=== PATIENT | male | born 1965 | race Caucasian/White ===

== ENCOUNTER 2017-06-17 17:51 | Emergency (ER) | payer OTHER, MEDICARE, MEDICAID ==
[2017-06-17] MEDS ORDERED: IBUPROFEN 800 MG TABLET PO ONE (19:13)
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
[2017-06-17] MEDS ORDERED: HYDROCODONE/ACETAMINOPHEN 5-325 MG 6 TAB/DSPK PO PRN (19:54)
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
[2017-06-17 20:17] VITALS: BP 150/87
== END 2017-06-17 20:17 | disposition home or self-care (01) ==
LOC: ER 17:51
DX: T14.8 Other injury of unspecified body region (principal); S60.221A Contusion of right hand, initial encounter; V43.52XA Car driver injured in collision with other type car in traffic accident, initial encounter; M25.511 Pain in right shoulder; M25.512 Pain in left shoulder; M79.1 Myalgia; R07.89 Other chest pain; M79.641 Pain in right hand; E11.9 Type 2 diabetes mellitus without complications; Z87.891 Personal history of nicotine dependence
CPT/HCPCS: 71020; 99284

== ENCOUNTER 2017-10-06 18:24 | Emergency (ER) | payer MEDICARE, MEDICAID ==
--- NOTE | 2017-10-06 19:25 | ER Document Report ---
ED Medical Screen (RME) - General Chief Complaint: Abdominal Pain Stated Complaint: LEFT SIDE PAIN Time Seen by Provider: 10/06/17 19:21 Notes: Patient has left-sided upper abdominal pain. He also has a cough and left lower chest pain. He states his urine has been very dark lately. TRAVEL OUTSIDE OF THE [place] IN LAST 30 DAYS: No - Related Data Allergies/Adverse Reactions: No Known Allergies Allergy (Verified 10/06/17 18:28) Home Medications: Current Home Medications Cyclobenzaprine HCl [Flexeril 10 mg Tablet] 10 mg PO Q6HP PRN 10/06/17 [History] Ibuprofen 800 mg PO Q6HP PRN 10/06/17 [History] Lisinopril [Prinivil 5 mg Tablet] 5 mg PO DAILY 10/06/17 [History] Metformin HCl 1,000 mg PO BID 10/06/17 [History] Past Medical History - Social History Frequency of alcohol use: None Drug Abuse: None Endocrine Medical History: Reports: Hx Diabetes Mellitus Type 2 Renal/ Medical History: Denies: Hx Peritoneal Dialysis Past Surgical History: Reports: Hx Orthopedic Surgery - spinal Physical Exam - Vital signs Vitals: Temp Pulse Resp BP Pulse Ox 97.6 F 78 18 134/90 H 99 10/06/17 18:28 10/06/17 18:28 10/06/17 18:28 10/06/17 18:28 10/06/17 18:28 Course - Vital Signs Vital signs: Temp Pulse Resp BP Pulse Ox 97.6 F 78 18 134/90 H 99 10/06/17 18:28 10/06/17 18:28 10/06/17 18:28 10/06/17 18:28 10/06/17 18:28
--- NOTE | 2017-10-06 19:47 | RADIOLOGY REPORT (SQ) ---
EXAM DESCRIPTION: CHEST PA/LAT COMPLETED DATE/TIME: 10/06/2017 7:37 pm REASON FOR STUDY: cough COMPARISON: 06/17/2017 NUMBER OF VIEWS: Two views. TECHNIQUE: Frontal and lateral radiographic views of the chest acquired. LIMITATIONS: None. FINDINGS: LUNGS AND PLEURA: No opacities, masses or pneumothorax. No pleural effusion. MEDIASTINUM AND HILAR STRUCTURES: No masses or contour abnormality. HEART AND VASCULAR STRUCTURES: Cardiac enlargement. Vascular congestion. BONES: No acute findings. HARDWARE: None in the chest. OTHER: No other significant finding. IMPRESSION: CARDIAC ENLARGEMENT. VASCULAR CONGESTION. TECHNICAL DOCUMENTATION: JOB ID: [id number] [employer]- All Rights Reserved
[2017-10-06 20:05] LABS: ABSOLUTE BASOPHILS # (AUTO) 0.1 10^3/uL (0.0-0.2); ABSOLUTE EOSINOPHILS # (AUTO) 0.1 10^3/uL (0.0-0.6); ABSOLUTE LYMPHOCYTES (AUTO) 3.5 10^3/uL (0.5-4.7); ABSOLUTE MONOCYTES (AUTO) 0.6 10^3/uL (0.1-1.4); ABSOLUTE NEUT (AUTO) 5.8 10^3/uL (1.7-8.2); EOSINOPHILS % (AUTO) 1.1 % (0-6); HEMATOCRIT 43.4 % (37.9-51.0); HEMOGLOBIN 14.7 g/dL (13.5-17.0); HGB HCT DIFFERENCE 0.7; LYMPHOCYTES % (AUTO) 35.2 % (13-45); MEAN CORPUSCULAR HGB CONC 33.9 g/dL (32.0-36.0); MEAN CORPUSCULAR VOLUME 86 fl (80-97); MONOCYTES % (AUTO) 5.5 % (3-13); RED BLOOD COUNT 5.07 10^6/uL (4.35-5.55); SEGMENTED NEUTROPHILS % (AUTO) 57.2 % (42-78); WHITE BLOOD COUNT 10.1 10^3/uL (4.0-10.5)
[2017-10-06 20:08] LABS: APPEARANCE,URINE CLEAR; BILIRUBIN,URINE NEGATIVE (NEGATIVE); GLUCOSE, URINE 50 mg/dL (NEGATIVE); KETONES,URINE TRACE mg/dL (NEGATIVE); LEUKOCYTE ESTERASE,URINE NEGATIVE (NEGATIVE); NITRITE,URINE NEGATIVE (NEGATIVE); PROTEIN,URINE NEGATIVE (NEGATIVE); URINE SPECIFIC GRAVITY 1.024
[2017-10-06 20:26] LABS: ALANINE AMINOTRANSFERASE 51 U/L (21-72); ALBUMIN 3.8 g/dL (3.5-5.0); ALKALINE PHOSPHATASE 96 U/L (38-126); ANION GAP 12 (5-19); ASPARTATE AMINO TRANSFERASE 70 U/L (17-59); BILIRUBIN,DIRECT 0.5 mg/dL (0.0-0.4); BLOOD UREA NITROGEN 12 mg/dL (7-20); CARBON DIOXIDE 24 mmol/L (22-30); CHLORIDE 105 mmol/L (98-107); CREATININE RESULT 0.84 mg/dL (0.52-1.25); GLUCOSE 142 mg/dL (75-110); POTASSIUM 4.5 mmol/L (3.6-5.0); SODIUM 140.5 mmol/L (137-145); TOTAL PROTEIN 7.4 g/dL (6.3-8.2)
[2017-10-06 20:39] LABS: TROPONIN I < 0.012 ng/mL
[2017-10-06] MEDS ORDERED: LIDOCAINE 5% (700 MG) TRANSDERMAL ADH..PATCH TP ONE (21:12)
[2017-10-06] MEDS ORDERED: IBUPROFEN 600 MG TABLET PO ONE (21:12)
--- NOTE | 2017-10-06 21:16 | ER Document Report ---
ED General - General Chief Complaint: Abdominal Pain Stated Complaint: LEFT SIDE PAIN Time Seen by Provider: 10/06/17 19:21 Notes: Patient is a 51-year-old male with a past medical history of hypertension, diabetes, morbid obesity who presents with 5 days of left upper abdominal pain and left flank pain. He describes this as a stabbing, intermittent pain that is triggered by movement. He also notes that when he bears down to have a bowel movement triggers the pain. When he lies still the pain is resolved. Uncertain of the trigger or cause of this pain. He denies any history of similar symptoms in the past. He has not seen his primary care doctor regarding today's concerns. He denies any fever, vomiting, diarrhea, chest pain or shortness of breath. He denies any pleuritic component to the pain. He has no prior history of DVT or pulmonary embolus. He denies any unilateral leg swelling. He has not seen a primary care doctor regarding today's concerns. TRAVEL OUTSIDE OF THE [place] IN LAST 30 DAYS: No - Related Data Allergies/Adverse Reactions: No Known Allergies Allergy (Verified 10/06/17 18:28) Home Medications: Current Home Medications Cyclobenzaprine HCl [Flexeril 10 mg Tablet] 10 mg PO Q6HP PRN 10/06/17 [History] Ibuprofen 800 mg PO Q6HP PRN 10/06/17 [History] Lisinopril [Prinivil 5 mg Tablet] 5 mg PO DAILY 10/06/17 [History] Metformin HCl 1,000 mg PO BID 10/06/17 [History] Past Medical History - General Information source: Patient - Social History Smoking Status: Former Smoker Frequency of alcohol use: None Drug Abuse: None Lives with: Spouse/Significant other Family History: Reviewed & Not Pertinent Patient has suicidal ideation: No Patient has homicidal ideation: No Endocrine Medical History: Reports: Hx Diabetes Mellitus Type 2 Renal/ Medical History: Denies: Hx Peritoneal Dialysis Past Surgical History: Reports: Hx Orthopedic Surgery - spinal Review of Systems - Review of Systems Notes: Constitutional: Negative for fever. HENT: Negative for sore throat. Eyes: Negative for visual changes. Cardiovascular: Negative for chest pain. Respiratory: Negative for shortness of breath. Gastrointestinal: Positive for abdominal pain Genitourinary: Negative for dysuria. Musculoskeletal: Negative for back pain. Skin: Negative for rash. Neurological: Negative for headaches, weakness or numbness. 10 point ROS negative except as marked above and in HPI. Physical Exam - Vital signs Vitals: Temp Pulse Resp BP Pulse Ox 97.6 F 78 18 134/90 H 99 10/06/17 18:28 10/06/17 18:28 10/06/17 18:28 10/06/17 18:28 10/06/17 18:28 Interpretation: Normal Notes: PHYSICAL EXAMINATION: GENERAL: Well-appearing, well-nourished and in no acute distress. HEAD: Atraumatic, normocephalic. EYES: Pupils equal round and reactive to light, extraocular movements intact, sclera anicteric, conjunctiva are normal. ENT: nares patent, oropharynx clear without exudates. Moist mucous membranes. NECK: Normal range of motion, supple without lymphadenopathy LUNGS: Breath sounds clear to auscultation bilaterally and equal. No wheezes rales or rhonchi. HEART: Regular rate and rhythm without murmurs ABDOMEN: Soft, nontender, normoactive bowel sounds. No guarding, no rebound. No masses appreciated. EXTREMITIES: Normal range of motion, no pitting or edema. No cyanosis. NEUROLOGICAL: No focal neurological deficits. Moves all extremities spontaneously and on command. PSYCH: Normal mood, normal affect. SKIN: Warm, Dry, normal turgor, no rashes or lesions noted. Course - Re-evaluation Re-evalutation: 10/06/17 21:12 Patient presents with 5 days of movement related left upper quadrant and left side pain. Patient reports the pain is only present when he is moving or shifting in bed or trying to bear down to have a bowel movement. Abdominal exam itself is benign without any focal tenderness, rebound or guarding. He does not have any clinical history to suggest an acute biliary pathology, pancreatitis, bowel obstruction, mesenteric ischemia, bowel perforation, or splenic infarct. Patient does not have clinical history to suggest an acute pulmonary embolus as etiology of his left side pain and he is PERC criteria negative. Patient was incidentally found on imaging to have pulmonary vascular congestion and cardiomegaly. He is not complaining of chest pain or shortness of breath and apparently this image was obtained in triage more to evaluate for possible rib fractures. I did inform the patient of these findings and also sent a troponin proBNP to further evaluate for any acute pathology. I do not have a baseline for proBNP and but it is somewhat elevated at 1200. I suspect that this is secondary to patient's morbid obesity as he is over 150 kg and he also has a history of hypertension and diabetes. I explained to the patient and we did spend extensive time discussing the importance of weight loss as well as follow-up with cardiology on a semi-urgent basis for echocardiogram for definitive diagnosis of the etiology of his cardiomegaly and vascular congestion. This referral has been provided to the patient. I do not suspect any acute life-threatening pathology as the etiology of the patient's left- sided abdominal pain. I suspect it is likely musculoskeletal in origin given that it is related to movement and positional change and is able to be completely alleviated when he remains still. His urinalysis is not consistent with acute pyonephritis or nephrolithiasis. I do not believe any CT imaging of the abdomen pelvis is appropriate at this time. Two-view of the abdomen does not demonstrate any evidence of perforation or obstruction. At this time will discharge with return precautions and follow-up recommendations. Verbal discharge instructions given a the bedside and opportunity for questions given. Medication warnings reviewed. Patient is in agreement with this plan and has verbalized understanding of return precautions and the need for primary care follow-up in the next 24-72 hours. - Vital Signs Vital signs: Temp Pulse Resp BP Pulse Ox 97.6 F 66 18 127/100 H 97 10/06/17 18:28 10/06/17 21:52 10/06/17 18:28 10/06/17 21:52 10/06/17 21:52 - Laboratory Result Diagrams: 10/06/17 19:53 10/06/17 19:53 Laboratory results interpreted by me: 10/06/17 10/06/17 10/06/17 19:53 19:53 19:53 RDW 15.0 H Glucose 142 H Direct Bilirubin 0.5 H AST 70 H NT-Pro-B Natriuret Pep Urine Glucose (UA) 50 H Urine Ketones TRACE H Urine Urobilinogen 2.0 H 10/06/17 19:53 RDW Glucose Direct Bilirubin AST NT-Pro-B Natriuret Pep 1330 H Urine Glucose (UA) Urine Ketones Urine Urobilinogen - Diagnostic Test Radiology reviewed: Image reviewed, Reports reviewed Radiology results interpreted by me: 10/07/17 01:44 Chest x-ray: Pulmonary vascular congestion and cardiomegaly 2 view abdomen: No free air or obstruction Discharge - Discharge Clinical Impression: Left sided abdominal pain, Morbid obesity Congestive heart failure Qualifiers: Congestive heart failure type: unspecified congestive heart failure type Congestive heart failure chronicity: unspecified congestive heart failure chronicity Qualified Code(s): I50.9 - Heart failure, unspecified Disposition: HOME, SELF-CARE Additional Instructions: Your left-sided abdominal pain is likely related to a strain of one of your abdominal wall muscles. Your labs and x-rays are otherwise normal today with the exception as we discussed today of your chest x-ray which shows findings to suggest that you do have congestive heart failure. This is not likely associated with your abdominal pain, but as we have discussed today it is critical that you follow-up with your primary care doctor as well as a pleater for further evaluation of this new finding. For your left-sided abdominal pain take ibuprofen 600 mg every 6 hours as needed for discomfort. You may also apply heat pack to the area. Return if you have worsening pain, shortness of breath, persistent vomiting, develop a fever, or have any other symptoms that are worrisome to you. As we discussed today, please strongly consider losing weight. Your obesity will result in a shorter life and serious diagnoses including heart attacks, stroke, diabetes, high blood pressure, high cholesterol, kidney failure, and will also result in a much less enjoyable life due to these chronic conditions. Focus on gradual life style changes including removing sugared beverages and processed foods from your diet abd at least 30 minutes of moderate activity daily. Try to target 4-5lbs of weight loss per month. Referrals: QUINN TAN PA-C [Primary Care Provider] - Follow up as needed CIARAN MCCABE MD [ACTIVE STAFF] - Follow up in 3-5 days
--- NOTE | 2017-10-06 21:40 | RADIOLOGY REPORT (SQ) ---
EXAM DESCRIPTION: ABDOMEN 2 VIEWS COMPLETED DATE/TIME: 10/06/2017 9:32 pm REASON FOR STUDY: abdominal pain COMPARISON: None. NUMBER OF VIEWS: Two views. TECHNIQUE: Supine and erect/decubitus radiographic images of the abdomen acquired. LIMITATIONS: None. FINDINGS: FREE AIR: None. No abnormal gas collections. LUNG BASES: Clear. BOWEL GAS PATTERN: Nonobstructive pattern. No dilated loops or air fluid levels. CALCIFICATIONS: No suspicious calcifications. SOFT TISSUES: No gross mass or suggestion of organomegaly. HARDWARE: None in the abdomen. BONES: No acute fracture. No worrisome bone lesions. OTHER: No other significant finding. IMPRESSION: NO RADIOGRAPHIC EVIDENCE FOR ACUTE ABDOMINAL DISEASE. TECHNICAL DOCUMENTATION: JOB ID: [id number] [employer]- All Rights Reserved
[2017-10-06 22:19] VITALS: BP 127/100
== END 2017-10-06 22:33 | disposition home or self-care (01) ==
LOC: ER 18:24
DX: I50.9 Heart failure, unspecified (principal); R10.9 Unspecified abdominal pain; I10 Essential (primary) hypertension; E11.9 Type 2 diabetes mellitus without complications; E66.01 Morbid (severe) obesity due to excess calories; Z79.899 Other long term (current) drug therapy; Z87.891 Personal history of nicotine dependence
CPT/HCPCS: 99284; 36415; 85025; 80053; 81001; 84484; 83880; 74020; 71020; A9270

== ENCOUNTER 2018-08-23 21:25 | Inpatient (IN) | payer MEDICARE, MEDICAID ==
[2018-08-23 22:44] LABS: ABSOLUTE EOSINOPHILS # (AUTO) 0.1 10^3/uL (0.0-0.6); ABSOLUTE LYMPHOCYTES (AUTO) 3.1 10^3/uL (0.5-4.7); ABSOLUTE MONOCYTES (AUTO) 0.4 10^3/uL (0.1-1.4); ABSOLUTE NEUT (AUTO) 4.3 10^3/uL (1.7-8.2); BASOPHILS % (AUTO) 0.2 % (0-2); EOSINOPHILS % (AUTO) 1.1 % (0-6); HEMATOCRIT 40.6 % (37.9-51.0); HEMOGLOBIN 13.6 g/dL (13.5-17.0); LYMPHOCYTES % (AUTO) 38.7 % (13-45); MEAN CORPUSCULAR HEMOGLOBIN 29.1 pg (27.0-33.4); MEAN CORPUSCULAR HGB CONC 33.7 g/dL (32.0-36.0); MEAN CORPUSCULAR VOLUME 87 fl (80-97); MONOCYTES % (AUTO) 5.4 % (3-13); PLATELET COUNT 155 10^3/uL (150-450); RED BLOOD COUNT 4.69 10^6/uL (4.35-5.55); RED CELL DISTRIBUTION WIDTH 15.6 % (11.5-14.0); SEGMENTED NEUTROPHILS % (AUTO) 54.6 % (42-78); TOTAL CELLS COUNTED % (AUTO) 100 %; WHITE BLOOD COUNT 7.9 10^3/uL (4.0-10.5)
--- NOTE | 2018-08-23 22:46 | RADIOLOGY REPORT (SQ) ---
EXAM DESCRIPTION: XR CHEST 1 VIEW COMPLETED DATE/TME: 08/23/2018 21:49 CLINICAL HISTORY: 52 years, Male, palpitations COMPARISON: None. EXAM DESCRIPTION: CLINICAL HISTORY: palpitations COMPARISON: 10/06/2017 FINDINGS: Single view of the chest is submitted. Cardiac silhouette is again enlarged, but unchanged. No focal parenchymal or pleural disease. No acute bony abnormality. There is increased bilateral pulmonary vascular engorgement. IMPRESSION: Mildly worsened pulmonary edema. Cardiomegaly.
--- NOTE | 2018-08-23 22:58 | EKG REPORT ---
SEVERITY:- ABNORMAL ECG - ATRIAL FIBRILLATION, V-RATE 80-139 : Confirmed by: Jewel Winters 23-Aug-2018 22:57:59
[2018-08-23 23:09] LABS: CREATINE KINASE MB 2.01 ng/mL (<4.55)
[2018-08-23 23:10] LABS: TROPONIN I < 0.012 ng/mL
[2018-08-23 23:13] LABS: ALANINE AMINOTRANSFERASE 26 U/L (21-72); ALBUMIN 3.8 g/dL (3.5-5.0); ALKALINE PHOSPHATASE 60 U/L (38-126); ANION GAP 8 (5-19); ASPARTATE AMINO TRANSFERASE 56 U/L (17-59); BILIRUBIN,DIRECT 0.6 mg/dL (0.0-0.4); BILIRUBIN,TOTAL 1.1 mg/dL (0.2-1.3); BLOOD UREA NITROGEN 16 mg/dL (7-20); CALCIUM 9.6 mg/dL (8.4-10.2); CARBON DIOXIDE 25 mmol/L (22-30); CHLORIDE 103 mmol/L (98-107); CREATINE KINASE 154 U/L (55-170); GLUCOSE 131 mg/dL (75-110); POTASSIUM 4.6 mmol/L (3.6-5.0); SODIUM 135.8 mmol/L (137-145); TOTAL PROTEIN 7.7 g/dL (6.3-8.2)
--- NOTE | 2018-08-24 | ER Document Report ---
ED General - General Chief Complaint: Irregular Pulse Stated Complaint: EPIGASTRIC PAIN Time Seen by Provider: 08/23/18 23:59 Notes: Patient is a 52-year-old male presents with complaint of feeling as if his heart is beating irregularly. He is also has some chest pain and difficulty breathing when he gets up and walks around. He says he feels as if his heart beats faster when he gets up and walks around. Says he has had some intermittent palpitations for over a month but today he felt that this was consistent and his heart was beating fast and he started developing the symptoms mentioned above. He went to urgent care and found out he was in A. fib therefore was referred here. He has no previous history of atrial fibrillation. No recent bleeding. No blood in stool. No vomiting blood. No history of coronary disease. No other complaints at this time. TRAVEL OUTSIDE OF THE [place] IN LAST 30 DAYS: No - Related Data Allergies/Adverse Reactions: No Known Allergies Allergy (Verified 10/06/17 18:28) Past Medical History - Social History Smoking Status: Never Smoker Frequency of alcohol use: None Drug Abuse: None Family History: Reviewed & Not Pertinent Endocrine Medical History: Reports: Hx Diabetes Mellitus Type 2 Renal/ Medical History: Denies: Hx Peritoneal Dialysis Past Surgical History: Reports: Hx Orthopedic Surgery - spinal Review of Systems - Review of Systems Notes: My Normal Review Basic REVIEW OF SYSTEMS: CONSTITUTIONAL : Denies fever, chills, or sweats. Denies recent illness. EENT: Denies eye, ear, throat, or mouth pain or symptoms. Denies nasal or sinus congestion. CARDIOVASCULAR: Has some chest pain with exertion. Palpitations. RESPIRATORY: Difficulty breathing with exertion. GASTROINTESTINAL: Denies abdominal pain. Denies nausea, vomiting, or diarrhea. Denies constipation. Last BM: GENITOURINARY: Denies difficulty urinating, painful urination, burning, frequency, or blood in urine. MUSCULOSKELETAL: Denies neck or back pain or joint pain or swelling. SKIN: Denies rash or skin lesions. NEUROLOGICAL: Denies altered mental status or loss of consciousness. Denies headache. Denies weakness or paralysis or loss of use of either side. Denies problems with gait or speech. Denies sensory or motor loss. ALL OTHER SYSTEMS REVIEWED AND NEGATIVE. Physical Exam - Vital signs Vitals: Temp Pulse Resp BP Pulse Ox 98.6 F 88 16 143/88 H 97 10/01/18 21:37 08/23/18 21:37 08/23/18 21:37 08/23/18 21:37 08/23/18 21:37 - Notes Notes: General Appearance: Well nourished, alert, cooperative, no acute distress, no obvious discomfort. Vitals: reviewed, See vital signs table. Head: no swelling or tenderness to the head Eyes: PERRL, EOMI, Conjuctiva clear Mouth: No decreasd moisture Lungs: No wheezing, No rales, No rhonci, No accessory muscle use, good air exchange bilaterally. Heart: Regular rate, tachycardic rythm, No murmur, no rub Abdomen: Normal BS, soft, No rigidity, No abdominal tenderness, No guarding, no rebound, no abdominal masses, no organomegaly Extremities: strength 5/5 in all extremities, good pulses in all extremities, no swelling or tenderness in the extremities, no edema. Skin: warm, dry, appropriate color, no rash Neuro: speech clear, oriented x 3, normal affect, responds appropriately to questions. Course - Re-evaluation Re-evalutation: 08/25/18 00:30 Patient is atrial fibrillation with RVR. When he is at rest his heart rate is down into the low 100s. As soon as he moves around his heart rate shoots into the 120s 130s. I did give a dose of Lovenox. His cardiac enzymes thus far negative. I have spoken with the hospitalist, Dr. Herrmann, who agrees to evaluate the patient for admission. Dictation of this chart was performed using voice recognition software; therefore, there may be some unintended grammatical errors. - Vital Signs Vital signs: Temp Pulse Resp BP Pulse Ox 98.3 F 83 20 103/66 98 08/25/18 00:09 08/25/18 00:09 08/25/18 00:09 08/25/18 00:09 08/25/18 00:09 - Laboratory Result Diagrams: 08/23/18 22:35 08/23/18 22:35 Laboratory results interpreted by me: 08/23/18 08/23/18 22:35 22:35 RDW 15.6 H Sodium 135.8 L Glucose 131 H Direct Bilirubin 0.6 H - EKG Interpretation by Me Additional EKG results interpreted by me: 08/24/18 00:00 EKG is reviewed and interpreted by me. EKG shows A. fib with a rate of [address] segment elevation or depression. No ischemic T wave inversions. QRS duration QTc intervals are within normal range. No old EKG available for comparison. Discharge - Discharge Clinical Impression: Atrial fibrillation Qualifiers: Atrial fibrillation type: persistent Qualified Code(s): I48.1 - Persistent atrial fibrillation Chest pain Qualifiers: Chest pain type: unspecified Qualified Code(s): R07.9 - Chest pain, unspecified Condition: Stable Disposition: ADMITTED INPATIENT Admitting Provider: Hospitalist Unit Admitted: [facility]
[2018-08-24] MEDS ORDERED: DILTIAZEM HCL INJ 25 MG/5 ML VIAL IV ONE (00:13)
[2018-08-24] MEDS ORDERED: DILTIAZEM HCL/D5W 125 MG/125 ML RTUINJ IV PRN ×2 (00:13→04:28)
[2018-08-24] MEDS ORDERED: ENOXAPARIN SODIUM INJ 150 MG/1 ML DISP.SYRIN SUBCUT ONE (00:45)
[2018-08-24] MEDS ORDERED: DILTIAZEM HCL/D5W 125 MG/125 ML RTUINJ IV ONE (00:49)
[2018-08-24] MEDS ORDERED: MAG HYDROX/AL HYDROX/SIMETH SUSP 30 ML UDCUP PO PRN (04:19)
[2018-08-24] MEDS ORDERED: ACETAMINOPHEN 325 MG TABLET PO PRN (04:19)
[2018-08-24 05:31] LABS: CHOLESTEROL 165.81 mg/dL (0-200); CREATINE KINASE 138 U/L (55-170); TRIGLYCERIDES 85 mg/dL (<150)
[2018-08-24 05:42] LABS: DIRECT LDL 100 mg/dL (<100)
[2018-08-24 05:44] LABS: CREATINE KINASE MB 1.98 ng/mL (<4.55); TROPONIN I 0.015 ng/mL
[2018-08-24] MEDS ORDERED: GLUCAGON,HUMAN RECOMB 1 MG INJ IM PRN (05:56)
[2018-08-24] MEDS ORDERED: DEXTROSE 50%-WATER 25 GM/50 ML DISP.SYRIN IV PRN ×2 (05:56)
[2018-08-24] MEDS ORDERED: DEXTROSE 40% GEL 15 GM TUBE PO PRN ×2 (05:56)
[2018-08-24] MEDS ORDERED: INSULIN LISPRO 100 UNIT/ML 3 ML VIAL SUBCUT PRN (05:56)
--- NOTE | 2018-08-24 05:56 | PDOC H&P ---
History of Present Illness Admission Date/PCP: 08/24/18 04:41 QUINN TAN PA-C Patient complains of: Palpitations History of Present Illness: MINNIE SWANSON is a 52 year old male with past medical history of morbid obesity, hypertension, diabetes and obstructive sleep apnea. Patient presents with worsening intermittent palpitations over the last 2 months. He admits to chest tightness and shortness of breath prompting evaluation in the emergency room where he is found to have A. fib with RVR. He started on IV Cardizem and referred to the hospitalist for admission. Patient denies current chest pain, Alcohol, new medication, excessive caffeine or heat intolerance. Past Medical History Cardiac Medical History: Reports: Hypertension Pulmonary Medical History: Reports: Sleep Apnea Endocrine Medical History: Reports: Diabetes Mellitus Type 2, Obesity Psychiatric Medical History: Denies: Alcohol Dependency, Tobacco Dependency Past Surgical History Past Surgical History: Reports: Orthopedic Surgery - spinal Social History Information Source: Patient Lives with: Family Smoking Status: Never Smoker Frequency of Alcohol Use: None Drugs: None - Advance Directive Resuscitation Status: Full Code Family History Family History: Hypertension Parental Family History Reviewed: Yes Children Family History Reviewed: Yes Sibling(s) Family History Reviewed.: Yes Medication/Allergy Home Medications: Cyclobenzaprine HCl [Flexeril 10 mg Tablet] 10 mg PO Q6HP PRN 10/06/17 Ibuprofen 800 mg PO Q6HP PRN 10/06/17 Lisinopril [Prinivil 5 mg Tablet] 5 mg PO DAILY 10/06/17 Metformin HCl 1,000 mg PO BID 10/06/17 Allergies/Adverse Reactions: No Known Allergies Allergy (Verified 10/06/17 18:28) Review of Systems Constitutional: ABSENT: chills, fever(s), headache(s), weight gain, weight loss Eyes: ABSENT: visual disturbances Ears: ABSENT: hearing changes Cardiovascular: PRESENT: dyspnea on exertion, edema, palpitations. ABSENT: orthropnea Respiratory: ABSENT: cough, hemoptysis Gastrointestinal: ABSENT: abdominal pain, constipation, diarrhea, hematemesis, hematochezia, nausea, vomiting Genitourinary: ABSENT: dysuria, hematuria Musculoskeletal: ABSENT: joint swelling Integumentary: ABSENT: rash, wounds Neurological: ABSENT: abnormal gait, abnormal speech, confusion, dizziness, focal weakness, syncope Psychiatric: ABSENT: anxiety, depression, homidical ideation, suicidal ideation Endocrine: ABSENT: cold intolerance, heat intolerance, polydipsia, polyuria Hematologic/Lymphatic: ABSENT: easy bleeding, easy bruising Physical Exam Vital Signs: Temp Pulse Resp BP Pulse Ox 98.6 F 88 17 107/57 L 99 08/23/18 21:37 08/23/18 21:37 08/24/18 05:46 08/24/18 05:46 08/24/18 05:46 General appearance: PRESENT: mild distress, morbidly obese, well-developed, well -nourished Head exam: PRESENT: atraumatic, normocephalic Eye exam: PRESENT: conjunctiva pink, EOMI, PERRLA. ABSENT: scleral icterus Ear exam: PRESENT: normal external ear exam Mouth exam: PRESENT: moist, tongue midline Neck exam: ABSENT: carotid bruit, JVD, lymphadenopathy, thyromegaly Respiratory exam: PRESENT: clear to auscultation ally. ABSENT: rales, rhonchi, wheezes Cardiovascular exam: PRESENT: irregular rhythm, tachycardia. ABSENT: diastolic murmur, gallop, rubs, systolic murmur Pulses: PRESENT: normal dorsalis pedis pul Vascular exam: PRESENT: normal capillary refill GI/Abdominal exam: PRESENT: normal bowel sounds, soft. ABSENT: distended, guarding, mass, organolmegaly, rebound, tenderness Rectal exam: PRESENT: deferred Extremities exam: PRESENT: full ROM. ABSENT: calf tenderness, clubbing, pedal edema Neurological exam: PRESENT: alert, awake, oriented to person, oriented to place , oriented to time, oriented to situation, CN II-XII grossly intact. ABSENT: motor sensory deficit Psychiatric exam: PRESENT: appropriate affect, normal mood. ABSENT: homicidal ideation, suicidal ideation Skin exam: PRESENT: dry, intact, warm. ABSENT: cyanosis, rash Results Laboratory Results: 08/24/18 04:50 Triglycerides 85 Cholesterol 165.81 LDL Cholesterol Direct 100 VLDL Cholesterol 17.0 HDL Cholesterol 45 08/24/18 08/24/18 04:50 04:50 Creatine Kinase 138 CK-MB (CK-2) 1.98 Troponin I 0.015 NT-Pro-B Natriuret Pep 2230 H Impressions: Chest X-Ray 08/23/18 21:49 IMPRESSION: Mildly worsened pulmonary edema. Cardiomegaly. Assessment & Plan - Diagnosis (1) Atrial fibrillation Qualifiers: Atrial fibrillation type: persistent Qualified Code(s): I48.1 - Persistent atrial fibrillation Is this a current diagnosis for this admission?: Yes Plan: IV Cardizem, Lovenox follow-up echocardiogram, serial cardiac enzymes, cardiology consult (2) Chest pain Qualifiers: Chest pain type: unspecified Qualified Code(s): R07.9 - Chest pain, unspecified Is this a current diagnosis for this admission?: Yes Plan: Secondary to #1, serial cardiac enzymes. (3) Morbid obesity Is this a current diagnosis for this admission?: Yes Plan: Morbid obesity will evaluate for metabolic cause with evaluation of thyroid function and dietitian consultation (4) Diabetes Is this a current diagnosis for this admission?: Yes Plan: Hold metformin, insulin with sliding scale coverage. - Time Time Spent: 30 to 50 Minutes - Inpatient Certification Medical Necessity: Need Close Monitoring Due to Risk of Patient Decompensation
[2018-08-24] MEDS: ENOXAPARIN SODIUM INJ 150 MG/1 ML DISP.SYRIN SUBCUT SCH ×2 (10:05→21:22)
[2018-08-24] MEDS: DOCUSATE SODIUM 100 MG CAPSULE PO SCH ×2 (10:05→18:21)
[2018-08-24] MEDS ORDERED: DIGOXIN INJ 0.5 MG/2 ML AMPULE IV ONE (11:00)
[2018-08-24 11:16] LABS: CREATINE KINASE MB 1.77 ng/mL (<4.55)
[2018-08-24 11:19] LABS: TROPONIN I < 0.012 ng/mL
--- NOTE | 2018-08-24 12:28 | EKG REPORT ---
SEVERITY:- ABNORMAL ECG - ATRIAL FIBRILLATION, V-RATE 76-119 LEFT POSTERIOR FASCICULAR BLOCK BORDERLINE T ABNORMALITIES, ANT-LAT LEADS : Confirmed by: Jewel Winters 24-Aug-2018 12:27:45
[2018-08-24] MEDS ORDERED: HYDRALAZINE HCL INJ/PF 20 MG/1 ML SDV IV PRN (15:10)
--- NOTE | 2018-08-24 15:10 | Progress Note ---
Provider Note Provider Note: MINNIE SWANSON is a 52 year old male with PMH of morbid obesity, HTN, DM, RAY. The patient presented with palpitations and was found to be in A. fib with RVR. He started on IV Cardizem and referred to the hospitalist for admission, cardiology was consulted. The patient was seen this morning on rounds , he complains of 'not feeling well.' He denies chest pain, SOB or palpitations. He remains in AFIB, his HR fluctuates between 90-110. On cardizem gtt at 5mg/hr. 1. AFIB: Continue cardizem gtt for now. Administer 1 dose of digoxin 0.25mcg IV. Plan to transition to PO cardizem today or tomorrow. Full dose lovenox. Cardiology consulted, appreciate their recommendations. EKG in AM. 2. DM: Patient has a PMH of diabetes. Check HgbA1c in AM. Accucheks ACHS. Humalog SSI. 3. HTN: PMH HTN. Continue home dose lisinopril. IV Hydralazine PRN for SBP > 170
[2018-08-24 17:21] LABS: CREATINE KINASE MB 1.67 ng/mL (<4.55)
[2018-08-24 17:28] LABS: TROPONIN I < 0.012 ng/mL
[2018-08-24] MEDS: DILTIAZEM HCL 120 MG CAP.SR.24H PO SCH (20:09)
[2018-08-24] MEDS: ATORVASTATIN CALCIUM 20 MG TABLET PO SCH (21:23)
[2018-08-25 05:28] LABS: HEMATOCRIT 42.3 % (37.9-51.0); HEMOGLOBIN 14.3 g/dL (13.5-17.0); MEAN CORPUSCULAR HEMOGLOBIN 29.1 pg (27.0-33.4); MEAN CORPUSCULAR VOLUME 86 fl (80-97); PLATELET COUNT 136 10^3/uL (150-450); RED BLOOD COUNT 4.92 10^6/uL (4.35-5.55); RED CELL DISTRIBUTION WIDTH 15.1 % (11.5-14.0); WHITE BLOOD COUNT 7.6 10^3/uL (4.0-10.5)
[2018-08-25 05:50] LABS: ANION GAP 9 (5-19); BLOOD UREA NITROGEN 17 mg/dL (7-20); CALCIUM 9.2 mg/dL (8.4-10.2); CARBON DIOXIDE 25 mmol/L (22-30); CHLORIDE 103 mmol/L (98-107); CHOLESTEROL 166.05 mg/dL (0-200); GLUCOSE 117 mg/dL (75-110); POTASSIUM 4.5 mmol/L (3.6-5.0); SODIUM 136.9 mmol/L (137-145); TRIGLYCERIDES 89 mg/dL (<150)
[2018-08-25 06:01] LABS: DIRECT LDL 107 mg/dL (<100)
[2018-08-25] MEDS: DILTIAZEM HCL 120 MG CAP.SR.24H PO SCH ×2 (11:08→21:57)
[2018-08-25] MEDS: APIXABAN 5 MG TABLET PO SCH ×2 (11:08→16:59)
[2018-08-25] MEDS: LISINOPRIL 5 MG TABLET PO SCH (11:09)
[2018-08-25] MEDS: DOCUSATE SODIUM 100 MG CAPSULE PO SCH ×2 (11:09→16:59)
[2018-08-25] MEDS ORDERED: DIGOXIN 0.25 MG TABLET PO ONE (17:00)
--- NOTE | 2018-08-25 21:12 | Progress Note ---
Provider Note Provider Note: CARDIOLOGY PROGRESS NOTE by Dr. Joanie Dover on 08/25/2018. SUBJECTIVE: The patient continues to be in atrial fibrillation, but the rate heart rate is much improved. Even though the heart rate is below 100 when he is at rest when he walks it goes to around 120. Hence digoxin has been started. The patient denies any chest pain or discomfort. There is no shortness of breath. There is no PND orthopnea or leg edema. There is no bleeding on Lovenox. There is no TIA CVA symptoms. There is no ventricular arrhythmias seen. The patient denies any dizziness weakness syncope or near syncope. PHYSICAL EXAMINATION: The patient is morbidly obese, but in no acute distress. He is well-groomed. Selected Entries 08/25/18 08/25/18 15:07 19:07 Temperature 98.0 F 97.6 F Temperature Oral Source Pulse Rate 78 79 Respiratory 16 20 Rate Blood Pressure 91/57 L 122/66 Blood Pressure 68 84 Mean BP Location Left Arm BP Position Supine Sitting O2 Sat by Pulse 97 98 Oximetry Oxygen Delivery Cpap Room Air Method HEAD: Is atraumatic normocephalic. EYES: Pupils are equal round regular reactive to light accommodation. Extraocular movements are normal. There is no conjunctival pallor. There is no scleral icterus. EARS: Tympanic membranes are intact. External auditory canals are clear. NOSE: There is no deviated nasal septum. There is no inflammation of the nasal mucous membrane. MOUTH: Mucous membranes of mouth are moist, tongue is moist. There is no ulcers in the mouth. There is no bleeding from the gums. THROAT: There is no redness of the oropharynx, there is no exudates in the throat. SKIN: There is no skin rashes or skin lesions. There is no petechia or ecchymosis. NECK: Is supple. There is no JVD. Carotids are equal there is no bruit. There is no lymphadenopathy. There is no goiter. Trachea central. LUNGS: Is clear to auscultation percussion, without any rhonchi rales or wheezing. There is no chest wall tenderness. HEART: S1-S2 is heard S1 is of variable intensity. There is no S3 gallop there is no S4 gallop there is systolic murmur left sternal border and apex there is no rub. ABDOMEN: Is obese. There is no hepatosplenomegaly. Bowel sounds are normal. There is no tender areas of masses. EXTREMITIES: Femorals are deep. Femorals are diminished. There is no femoral bruit. Leg pulses are diminished. There is no pedal edema. There is no DVT or cellulitis. There is no sinus or clubbing. There is no calf tenderness. SHEET ROCK LAYER: Patient is conscious awake alert oriented x3 with no focal deficit. PSYCHIATRIC: The patient judgment and insight are intact his affect is normal. 08/25/18 08/25/18 05:04 05:04 WBC 7.6 Hgb 14.3 Hct 42.3 Plt Count 136 L Sodium 136.9 L Potassium 4.5 Chloride 103 Carbon Dioxide 25 BUN 17 Creatinine 0.97 Est GFR (Non-Af Amer) > 60 Glucose 117 H Calcium 9.2 IMPRESSION/RECOMMENDATION: 1. Atrial fibrillation with rapid ventricular response. Heart rate at present much better. At present continue IV Cardizem drip infusion at 5 mg/h. The heart rate goes below 100, then we will stop the patient's Cardizem drip, and start the patient on Eliquis 5 mg p.o. twice daily and stop the patient's Lovenox. Continue Cardizem CD 120 mg p.o. every 12 hours. Will also recommend adding digoxin 0.25 mg p.o. daily which has been done. 2. HYPERTENSION: Blood pressure under well controlled state. All 3. DIABETES MELLITUS: Type II [id number]. Continue metformin. Note that the patient's hemoglobin A1c is 6.4 4. OBSTRUCTIVE SLEEP APNEA: Continue CPAP. Note that the patient follows up with Dr. Elliott. 5. Morbid OBESITY: Later would recommend that the patient try diet and exercise to reduce the patient's weight. Note that the patient medications have been reviewed. New medications have been ordered. Medical decision making is of high complexity, in view of the medication changes. This is in addition to the patient's atrial fibrillation which has a fast ventricular response of the patient ambulates. 40 minutes spent on this patient with more than 50% of time spent in direct patient care. Discussed with other caregiving providers on the case. Will get outpatient IV Lexiscan Cardiolite to assess presence or absence of underlying coronary artery disease, and if present its severity. Also will get a echocardiogram as an outpatient. Note that the patient states that his CPAP is not been checked in a long time. Will have Dr. Elliott do this as an outpatient, since the patient follows up with Dr. Elliott.
[2018-08-25] MEDS: ATORVASTATIN CALCIUM 20 MG TABLET PO SCH (21:57)
--- NOTE | 2018-08-25 22:03 | PDOC PROGRESS REPORT ---
Subjective Progress Note for:: 08/25/18 Subjective:: MINNIE SWANSON is a 52 year old male with PMH of morbid obesity, HTN, DM, RAY. The patient presented with palpitations and was found to be in A. fib with RVR. He started on IV Cardizem and referred to the hospitalist for admission, cardiology was consulted. The patient was weaned from his cardizem gtt and started on PO cardizem per Cardiology recommendation. If able to tolerate, likely discharge home today or tomorrow Reason For Visit: AFIB MORBID OBESITY HTN Physical Exam Vital Signs: Temp Pulse Resp BP Pulse Ox 97.4 F 73 20 114/69 100 08/25/18 04:01 08/25/18 04:01 08/25/18 04:01 08/25/18 04:01 08/25/18 04:01 Intake & Output 08/24/18 08/25/18 08/26/18 06:59 06:59 06:59 Intake Total 1379 Output Total 2 Balance 1377 Weight 150.9 kg 152.6 kg General appearance: PRESENT: morbidly obese Eye exam: PRESENT: conjunctiva pink, PERRLA Mouth exam: PRESENT: moist Teeth exam: PRESENT: poor dentation Neck exam: PRESENT: full ROM. ABSENT: JVD Cardiovascular exam: PRESENT: irregular rhythm Pulses: PRESENT: normal radial pulses, normal dorsalis pedis pul GI/Abdominal exam: PRESENT: distended, normal bowel sounds, soft. ABSENT: tenderness Rectal exam: PRESENT: deferred Extremities exam: PRESENT: full ROM, pedal edema Musculoskeletal exam: PRESENT: ambulatory, full ROM Neurological exam: PRESENT: alert, awake, oriented to person, oriented to place , oriented to time, oriented to situation Psychiatric exam: PRESENT: appropriate affect Skin exam: PRESENT: dry, intact, normal color, warm Results Laboratory Results: 08/25/18 05:04 08/25/18 05:04 08/25/18 08/25/18 05:04 05:04 WBC 7.6 RBC 4.92 Hgb 14.3 Hct 42.3 MCV 86 MCH 29.1 MCHC 34.0 RDW 15.1 H Plt Count 136 L Sodium 136.9 L Potassium 4.5 Chloride 103 Carbon Dioxide 25 Anion Gap 9 BUN 17 Creatinine 0.97 Est GFR ( Amer) > 60 Est GFR (Non-Af Amer) > 60 Glucose 117 H Calcium 9.2 Triglycerides 89 Cholesterol 166.05 LDL Cholesterol Direct 107 H VLDL Cholesterol 18.0 HDL Cholesterol 42 08/24/18 08/24/18 08/24/18 04:50 04:50 10:24 Creatine Kinase 138 115 CK-MB (CK-2) 1.98 Troponin I 0.015 NT-Pro-B Natriuret Pep 2230 H 08/24/18 08/24/18 08/24/18 10:24 16:44 16:44 Creatine Kinase 114 CK-MB (CK-2) 1.77 1.67 Troponin I < 0.012 < 0.012 NT-Pro-B Natriuret Pep Impressions: Chest X-Ray 08/23/18 21:49 IMPRESSION: Mildly worsened pulmonary edema. Cardiomegaly. Status: Imported from PACS Assessment & Plan - Diagnosis (1) Atrial fibrillation Qualifiers: Atrial fibrillation type: persistent Qualified Code(s): I48.1 - Persistent atrial fibrillation Is this a current diagnosis for this admission?: Yes Plan: Cardizem gtt stopped for now. Transitioned to PO cardizem last night, tolerating well Monitor HR and rhythm closely Cardiology consulted, appreciate their recommendations Plan for d/c home today or tomorrow (2) Diabetes Qualifiers: Diabetes mellitus type: type 2 Diabetes mellitus complication status: without complication Is this a current diagnosis for this admission?: Yes Plan: Patient has a PMH of diabetes. Bob DOMINGUEZ. Dre SSI. HgbA1c 6.5 (3) HTN (hypertension) Qualifiers: Hypertension type: essential hypertension Qualified Code(s): I10 - Essential (primary) hypertension Is this a current diagnosis for this admission?: Yes Plan: PMH HTN Continue home dose lisinopril. IV Hydralazine PRN for SBP > 170 (4) RAY (obstructive sleep apnea) Is this a current diagnosis for this admission?: Yes Plan: Patient may use home CPAP Follow up with Dr Elliott as an outpatient - Time Time Spent with patient: 15-24 minutes Medications reviewed and adjusted accordingly: Yes Anticipated discharge: Home - Inpatient Certification Based on my medical assessment, after consideration of the patient's comorbidities, presenting symptoms, or acuity I expect that the services needed warrant INPATIENT care.: Yes I certify that my determination is in accordance with my understanding of Medicare's requirements for reasonable and necessary INPATIENT services [42 CFR 412.3e].: Yes Medical Necessity: Need For Continuous Telemetry Monitoring, Risk of Complication if Not Cared For in Hospital - Plan Summary Plan Summary: continue PO cardizem. monitor closely for AFIB with RVR. d/c lovenox and initiate eliquis in preparation of discharge home.
[2018-08-26 05:33] LABS: ANION GAP 10 (5-19); BLOOD UREA NITROGEN 17 mg/dL (7-20); CARBON DIOXIDE 23 mmol/L (22-30); CHLORIDE 104 mmol/L (98-107); GLUCOSE 100 mg/dL (75-110); POTASSIUM 4.6 mmol/L (3.6-5.0); SODIUM 136.8 mmol/L (137-145)
--- NOTE | 2018-08-26 09:08 | EKG REPORT ---
SEVERITY:- ABNORMAL ECG - ATRIAL FIBRILLATION, V-RATE 59-82 RIGHT AXIS DEVIATION NONSPECIFIC T ABNORMALITIES, LATERAL LEADS : Confirmed by: Jewel Winters 26-Aug-2018 09:07:10
[2018-08-26] MEDS ORDERED: DIGOXIN 0.25 MG TABLET PO SCH (10:00)
[2018-08-26] MEDS: DILTIAZEM HCL 120 MG CAP.SR.24H PO SCH (10:13)
[2018-08-26] MEDS: LISINOPRIL 5 MG TABLET PO SCH (10:13)
[2018-08-26] MEDS: APIXABAN 5 MG TABLET PO SCH (10:13)
[2018-08-26] MEDS: DOCUSATE SODIUM 100 MG CAPSULE PO SCH (10:14)
[2018-08-26 11:41] LABS: FREE T3 3.24 pg/mL (2.77-5.27); FREE T4 (FREE THYROXINE) 1.37 ng/dL (0.78-2.19)
[2018-08-26 16:50] VITALS: BP 120/74
--- NOTE | 2018-08-26 20:14 | Progress Note ---
Provider Note Provider Note: CARDIOLOGY PROGRESS NOTES by Dr. Joanie Dover on 08/26/2018. SUBJECTIVE: The patient denies any chest pain or discomfort. There is no shortness of breath. There is no leg edema. There is no PND orthopnea. There is no bleeding on Eliquis. There is no TIA CVA symptoms. There is no dizziness near syncope or syncope. Of note the patient's heart rate is much better with the addition of digoxin, and his exertional heart rate is acceptable. The patient is being discharged today, and will have outpatient IV Lexiscan Cardiolite and a 30-day event monitor, and echocardiogram done as an outpatient. PHYSICAL EXAMINATION: The patient is morbidly obese. He is in no acute distress. He is well-groomed. 08/26/18 15:17 Temperature 97.7 F Temperature Axillary Source Pulse Rate 67 Respiratory 16 Rate Blood Pressure 120/74 Blood Pressure 89 Mean BP Location Right Arm BP Position Sitting O2 Sat by Pulse 100 Oximetry Oxygen Delivery Room Air Method HEAD: Is atraumatic normocephalic. EYES: Pupils are equal round regular reactive to light accommodation. Extraocular movements are normal. There is no conjunctival pallor. There is no scleral icterus. EARS: Tympanic membranes are intact. External auditory canals are clear. NOSE: There is no deviated nasal septum. There is no inflammation of the nasal mucous membrane. MOUTH: Mucous membranes of mouth are moist, tongue is moist. There is no ulcers in the mouth. There is no bleeding from the gums. THROAT: There is no redness of the oropharynx, there is no exudates in the throat. SKIN: There is no skin rashes or skin lesions. There is no petechia or ecchymosis. NECK: Is supple. There is no JVD. Carotids are equal there is no bruit. There is no lymphadenopathy. There is no goiter. Trachea central. LUNGS: Is clear to auscultation percussion, without any rhonchi rales or wheezing. There is no chest wall tenderness. HEART: S1-S2 is heard S1 is of variable intensity. There is no S3 gallop there is no S4 gallop there is systolic murmur left sternal border and apex there is no rub. ABDOMEN: Is obese. There is no hepatosplenomegaly. Bowel sounds are normal. There is no tender areas of masses. EXTREMITIES: Femorals are deep. Femorals are diminished. There is no femoral bruit. Leg pulses are diminished. There is no pedal edema. There is no DVT or cellulitis. There is no sinus or clubbing. There is no calf tenderness. DRAWING HAND: Patient is conscious awake alert oriented x3 with no focal deficit. PSYCHIATRIC: The patient judgment and insight are intact his affect is normal. 08/26/18 04:47 Sodium 136.8 L Potassium 4.6 Chloride 104 Carbon Dioxide 23 BUN 17 Creatinine 0.90 Est GFR (Non-Af Amer) > 60 Glucose 100 Calcium 9.0 EKG shows atrial fibrillation with controlled ventricular response. Right axis deviation. Minor nonspecific T abnormalities diffusely. IMPRESSION/RECOMMENDATION: 1. Atrial fibrillation with rapid ventricular response. Heart rate at present much better. At present continue IV Cardizem drip infusion at 5 mg/h. The heart rate goes below 100, then we will stop the patient's Cardizem drip, and start the patient on Cardizem CD 120 mg p.o. every 12 hours. Continue Lovenox at 1 mg/kg subcutaneous every 12 hours. Later we will start the patient on Eliquis 5 mg p.o. twice daily. 2. HYPERTENSION: Blood pressure under well control state. All 3. DIABETES MELLITUS: Type II [id number]. Continue metformin. Note that the patient's hemoglobin A1c is 6.4 4. OBSTRUCTIVE SLEEP APNEA: Continue CPAP. Note that the patient follows up with Dr. Elliott. 5. Morbid OBESITY: Later would recommend that the patient try diet and exercise to reduce the patient's weight. Medications have been reviewed. Continue Cardizem CD at 120 mg p.o. every 12 hours and Eliquis at 5 mg p.o. twice daily, and digoxin 0.25 mg p.o. daily. Continue his antidiabetic medication. Continue his antihypertensive medication also. Note medical decision making is of moderate complexity. Note 40 minutes spent on this patient more than 50% of time spent in direct patient care. Discussed with other caregiving providers on the case. As desired by the patient will follow up the patient as an outpatient. Thank you for allowing me to participate in this care of this patient. Will sign off.
== END 2018-08-26 17:18 | disposition home or self-care (01) | DRG 309 ==
LOC: ER 21:25 → EH 08-24 04:41 → 3W 08-24 06:04
PROVIDERS: ADMIT Internal Medicine; ATTEND Internal Medicine
DX: I48.1 Persistent atrial fibrillation (principal); Z68.42 Body mass index [BMI] 45.0-49.9, adult; E11.8 Type 2 diabetes mellitus with unspecified complications; I10 Essential (primary) hypertension; G47.33 Obstructive sleep apnea (adult) (pediatric); E66.01 Morbid (severe) obesity due to excess calories; Z79.84 Long term (current) use of oral hypoglycemic drugs; Z79.899 Other long term (current) drug therapy
CPT/HCPCS: 36415; 71045; 80048; 80053; 80061; 82550; 82553; 82962; 83036; 83735; 83880; 84439; 84443; 84481; 84484; 85025; 85027; 93005; 93010; 94660; 96365; 96366; 96372; 96376; 99285; J1160; J3490